=== PATIENT | male | born 1940 | race Caucasian/White ===

== ENCOUNTER 2021-08-27 18:20 | Inpatient (IN) ==
[2021-08-27] MEDS ORDERED: Naloxone 0.4 MG/ML INJ IVP PRN (23:43)
[2021-08-27] MEDS ORDERED: Ondansetron 4 MG/2 ML VIAL IVP PRN (23:43)
[2021-08-27] MEDS ORDERED: Acetaminophen 325 MG TABLET PO PRN (23:43)
[2021-08-28 00:37] LABS: Basophils % 0.1 %; Eosinophils # 0.1 K/mcL (0.0-0.6); Eosinophils % 0.5 %; Hemoglobin 9.2 g/dL (12.9-16.9); Immature Granulocytes % 0.8 % (0-4); Lymphocytes # 0.8 K/mcL (0.6-4.6); Lymphocytes % 5.6 %; Mean Corpuscular HGB Conc 32.9 g/dL (31.6-35.5); Mean Corpuscular Hemoglobin 30.4 pg (28.0-33.3); Mean Corpuscular Volume 92.4 fL (83.0-100.0); Monocytes # 0.4 K/mcL (0.0-1.3); Monocytes % 2.9 %; Neutrophils # 12.8 K/mcL (1.6-8.9); Platelet Count 142 K/mcL (140-400); Red Blood Count 3.03 M/mcL (4.19-5.50); Red Cell Distribution Width 16.4 % (11.5-14.5); Segmented Neutrophils % 90.1 %; White Blood Count 14.2 K/mcL (4.3-11.1)
[2021-08-28 00:43] LABS: INR 2.1; Prothrombin Time 23.7 Seconds (9.4-12.1)
[2021-08-28] MEDS ORDERED: Perflutren Lipid Microsphere 1.3 ML in 0.9 % Sodium Chloride 8.7 ML IVP PRN (00:43)
[2021-08-28 01:05] LABS: Albumin 2.2 g/dL (3.5-5.7); Albumin/Globulin Ratio 0.8 (1.1-2.2); Bilirubin,Direct 0.5 mg/dL (0.0-0.2); Bilirubin,Indirect 0.6 mg/dL (0.0-1.0); Bilirubin,Total 1.1 mg/dL (0.3-1.0); Calcium 8.3 mg/dL (8.6-10.3); Globulin 2.9 g/dL (2.4-3.5); Phosphorous 3.6 mg/dL (2.7-4.5); Potassium 3.1 mEq/L (3.5-5.1); Total Protein 5.1 g/dL (6.4-8.9); Troponin I 0.56 ng/mL (< 0.04)
[2021-08-28 01:55] LABS: Estimated Average Glucose 97 mg/dl
[2021-08-28] MEDS: Pantoprazole 40 MG VIAL IVP SCH ×2 (01:59→10:37)
[2021-08-28 02:28] LABS: Folate > 22.3 ng/mL (3.0-16.0); Vitamin B12 934 pg/mL (250-1100)
[2021-08-28 05:25] LABS: Bacteria,Urine Few per hpf (None-Few); Bilirubin,Urine Negative (Negative); Blood,Urine Large (Negative); Budding Yeast,Urine Many per hpf (None Seen); Clarity,Urine Turbid (Clear); Color,Urine Light-Orange (Yellow); Glucose,Urine (UA) Normal (Normal); Ketones,Urine Negative (Negative); Leukocyte Esterase,Urine Large (Negative); Mucus,Urine Few per lpf (None-Few); Nitrite,Urine Negative (Negative); PH,Urine 5.5 pH Units (5.0-8.0); Protein,Urine 30 mg/dL (Neg-Trace); RBC,Urine TNTC per hpf (0-3); Specific Gravity,Urine 1.016 (1.010-1.025); Squamous Epithelial Cell,Urine Few per hpf (None-Few); Urobilinogen,Urine Normal (Normal); WBC,Urine TNTC per hpf (0-3)
[2021-08-28 05:48] LABS: Thyroid Stimulating Hormone 1.693 mcIU/mL (0.340-5.600)
[2021-08-28] MEDS ORDERED: cefTRIAXone 1,000 MG in 0.9 % Sodium Chloride Mini Bag 100 ML IVPB SCH (05:57)
[2021-08-28] MEDS ORDERED: Ipratropium/Albuterol Neb 3 ML IH PRN (05:57)
[2021-08-28] MEDS ORDERED: 0.9 % Sodium Chloride 1,000 ML IVC SCH (06:15)
[2021-08-28] MEDS ORDERED: Azithromycin 500 MG in 0.9 % Sodium Chloride 250 ML IVPB SCH (09:00)
[2021-08-28 21:32] LABS: A.calcoaceticus-baumannii cplx Not Detected (Not Detect); Bacteroides fragilis by PCR Not Detected (Not Detect); Candida albicans by PCR Not Detected (Not Detect); Candida auris by PCR Not Detected (Not Detect); Candida glabrata by PCR Not Detected (Not Detect); Candida krusei by PCR Not Detected (Not Detect); Candida parapsilosis by PCR Not Detected (Not Detect); Candida tropicalis by PCR Not Detected (Not Detect); Crypto. neoformans/gattii PCR Not Detected (Not Detect); Enterobacter cloacae Cmplx PCR Not Detected (Not Detect); Enterobacterales by PCR Not Detected (Not Detect); Enterococcus faecalis by PCR DETECTED (Not Detect); Enterococcus faecium by PCR Not Detected (Not Detect); Escherichia coli by PCR Not Detected (Not Detect); Klebs. pneumoniae group by PCR Not Detected (Not Detect); Klebsiella aerogenes by PCR Not Detected (Not Detect); Klebsiella oxytoca by PCR Not Detected (Not Detect); Proteus by PCR Not Detected (Not Detect); Pseudomonas aeruginosa by PCR Not Detected (Not Detect); Salmonella species by PCR Not Detected (Not Detect); Serratia marcescens by PCR Not Detected (Not Detect); Staph epidermidis by PCR Not Detected (Not Detect); Staph lugdunensis by PCR Not Detected (Not Detect); Staphylococcus aureus by PCR Not Detected (Not Detect); Staphylococcus by PCR Not Detected (Not Detect); Stenotrophomonas maltophilia Not Detected (Not Detect); Streptococcus agalactiae(B)PCR Not Detected (Not Detect); Streptococcus by PCR Not Detected (Not Detect); Streptococcus pneumoniae PCR Not Detected (Not Detect); Streptococcus pyogenes (A) PCR Not Detected (Not Detect)
[2021-08-28 23:37] LABS: ABG Base Excess 2 mEq/L (-2 to 3); ABG HCO3 25 mEq/L (21-27); ABG Oxygen Saturation 98 % (95-98); ABG PCO2 34 mmHg (35-45); ABG PH 7.48 pH Units (7.32-7.45); ABG PO2 95 mmHg (85-104); ABG TCO2 26 mEq/L (20-26)
[2021-08-29 03:39] LABS: Basophils % 0.2 %; Hematocrit 31.9 % (37.5-50.1); Hemoglobin 10.5 g/dL (12.9-16.9); Immature Granulocytes % 1.1 % (0-4); Lymphocytes # 0.7 K/mcL (0.6-4.6); Lymphocytes % 4.6 %; Mean Corpuscular HGB Conc 32.9 g/dL (31.6-35.5); Mean Corpuscular Hemoglobin 30.3 pg (28.0-33.3); Mean Corpuscular Volume 91.9 fL (83.0-100.0); Mean Platelet Volume 10.9 fL (9.4-12.4); Monocytes # 0.6 K/mcL (0.0-1.3); Monocytes % 3.9 %; Neutrophils # 14.5 K/mcL (1.6-8.9); Platelet Count 149 K/mcL (140-400); Red Blood Count 3.47 M/mcL (4.19-5.50); Red Cell Distribution Width 16.9 % (11.5-14.5); Segmented Neutrophils % 90.2 %
[2021-08-29 04:01] LABS: Calcium 8.5 mg/dL (8.6-10.3); Potassium 4.4 mEq/L (3.5-5.1)
[2021-08-29] MEDS ORDERED: 0.9 % Sodium Chloride 250 ML IVC PRN (08:16)
[2021-08-29] MEDS ORDERED: *HR* Heparin 10,000 UNIT/10 ML VIAL IV PRN ×2 (08:16)
[2021-08-29] MEDS ORDERED: 0.9 % Sodium Chloride 2,000 ML PRIME SCH (08:30)
[2021-08-29] MEDS ORDERED: cefTRIAXone 2,000 MG in 0.9 % Sodium Chloride 20 ML IVP SCH (09:00)
[2021-08-29] MEDS ORDERED: Piperacillin/Tazobactam 3.375 GM in 0.9 % Sodium Chloride Mini Bag 100 ML IVPB SCH (10:00)
[2021-08-29 10:45] LABS: Hepatitis B Surface Antibody 3.47 mIU/mL
[2021-08-29 10:55] LABS: Hepatitis B Surface Antigen Nonreactive (Nonreactive)
[2021-08-29] MEDS ORDERED: Gentamicin 240 MG in 0.9 % Sodium Chloride 100 ML IVPB ONE (16:00)
[2021-08-29] MEDS ORDERED: Vancomycin 1,250 MG/262.5 ML IV.SOLN IVPB ONE (18:00)
[2021-08-29] MEDS: Ampicillin 2,000 MG in 0.9 % Sodium Chloride Mini Bag 100 ML IVPB SCH (20:55)
[2021-08-30 01:38] LABS: Immature Granulocytes % 0.7 % (0-4)
[2021-08-30 01:40] LABS: Basophils % 0.2 %; Hematocrit 30.6 % (37.5-50.1); Hemoglobin 10.4 g/dL (12.9-16.9); Immature Platelets 5.4 % (1.1-6.1); Lymphocytes # 0.7 K/mcL (0.6-4.6); Lymphocytes % 3.5 %; Mean Corpuscular Hemoglobin 30.6 pg (28.0-33.3); Mean Platelet Volume 11.6 fL (9.4-12.4); Monocytes # 0.5 K/mcL (0.0-1.3); Monocytes % 2.5 %; Neutrophils # 18.3 K/mcL (1.6-8.9); Platelet Count 112 K/mcL (140-400); Red Cell Distribution Width 17.1 % (11.5-14.5); Segmented Neutrophils % 93.1 %; White Blood Count 19.6 K/mcL (4.3-11.1)
[2021-08-30 01:51] LABS: Potassium 3.9 mEq/L (3.5-5.1)
[2021-08-30] MEDS: Ampicillin 2,000 MG in 0.9 % Sodium Chloride Mini Bag 100 ML IVPB SCH ×2 (08:36→20:44)
[2021-08-30] MEDS: Pantoprazole 40 MG VIAL IVP SCH (08:36)
[2021-08-30] MEDS ORDERED: carvediloL 6.25 MG TABLET PO SCH (12:00)
[2021-08-30] MEDS ORDERED: Dextrose Gel 15 GM/37.5 ML TUBE PO PRN ×2 (15:58)
[2021-08-30] MEDS ORDERED: D5% in Water 1,000 ML IVC PRN (15:58)
[2021-08-30] MEDS ORDERED: *HR* Dextrose 50 % in Water (Syg) 50 ML SYRINGE IVP PRN (15:58)
[2021-08-30] MEDS: carvediloL 6.25 MG TABLET PO SCH (16:34)
[2021-08-30] MEDS: Lactobacillus 1 EACH CAP.SPRINK PO SCH (20:43)
[2021-08-30] MEDS: Chlorhexidine Rinse 15 ML MOUTHWASH MM SCH (20:44)
[2021-08-30 23:40] LABS: A.calcoaceticus-baumannii cplx Not Detected (Not Detect); Bacteroides fragilis by PCR Not Detected (Not Detect); Candida albicans by PCR Not Detected (Not Detect); Candida auris by PCR Not Detected (Not Detect); Candida glabrata by PCR Not Detected (Not Detect); Candida krusei by PCR Not Detected (Not Detect); Candida parapsilosis by PCR Not Detected (Not Detect); Candida tropicalis by PCR Not Detected (Not Detect); Crypto. neoformans/gattii PCR Not Detected (Not Detect); Enterobacter cloacae Cmplx PCR Not Detected (Not Detect); Enterobacterales by PCR Not Detected (Not Detect); Enterococcus faecalis by PCR DETECTED (Not Detect); Enterococcus faecium by PCR Not Detected (Not Detect); Escherichia coli by PCR Not Detected (Not Detect); Klebs. pneumoniae group by PCR Not Detected (Not Detect); Klebsiella aerogenes by PCR Not Detected (Not Detect); Klebsiella oxytoca by PCR Not Detected (Not Detect); Proteus by PCR Not Detected (Not Detect); Pseudomonas aeruginosa by PCR Not Detected (Not Detect); Salmonella species by PCR Not Detected (Not Detect); Serratia marcescens by PCR Not Detected (Not Detect); Staph epidermidis by PCR Not Detected (Not Detect); Staph lugdunensis by PCR Not Detected (Not Detect); Staphylococcus aureus by PCR Not Detected (Not Detect); Staphylococcus by PCR Not Detected (Not Detect); Stenotrophomonas maltophilia Not Detected (Not Detect); Streptococcus agalactiae(B)PCR Not Detected (Not Detect); Streptococcus by PCR Not Detected (Not Detect); Streptococcus pneumoniae PCR Not Detected (Not Detect); Streptococcus pyogenes (A) PCR Not Detected (Not Detect); vanA/B Vancomycin-Resist Genes Not Detected (Not Detect)
[2021-08-31 06:01] LABS: Basophils % 0.1 %; Immature Granulocytes % 0.9 % (0-4); Red Blood Count 3.05 M/mcL (4.19-5.50); Segmented Neutrophils % 87.3 %
[2021-08-31 06:03] LABS: Eosinophils # 0.1 K/mcL (0.0-0.6); Eosinophils % 1.1 %; Hematocrit 27.8 % (37.5-50.1); Hemoglobin 9.2 g/dL (12.9-16.9); Immature Platelets 6.5 % (1.1-6.1); Lymphocytes # 0.7 K/mcL (0.6-4.6); Lymphocytes % 5.7 %; Mean Corpuscular HGB Conc 33.1 g/dL (31.6-35.5); Mean Corpuscular Hemoglobin 30.2 pg (28.0-33.3); Mean Corpuscular Volume 91.1 fL (83.0-100.0); Mean Platelet Volume 10.7 fL (9.4-12.4); Monocytes # 0.6 K/mcL (0.0-1.3); Monocytes % 4.9 %; Red Cell Distribution Width 17.2 % (11.5-14.5); White Blood Count 11.5 K/mcL (4.3-11.1)
[2021-08-31 06:42] LABS: Calcium 7.7 mg/dL (8.6-10.3); Potassium 3.7 mEq/L (3.5-5.1)
[2021-08-31 06:43] LABS: Chol/HDL Ratio 14.6 (0-4.9)
[2021-08-31 06:45] LABS: Magnesium 1.9 mg/dL (1.6-2.6); Phosphorous 5.2 mg/dL (2.7-4.5)
[2021-08-31 06:49] LABS: % Iron Saturation 39 % (20-55); Iron 41 mcg/dL (65-175); Platelet Count 71 K/mcL (140-400); Transferrin 75 mg/dL (203-362)
[2021-08-31 06:50] LABS: Anisocytosis 1+ (Not Present); Platelet Estimate Decreased (Normal)
[2021-08-31 06:53] LABS: Ferritin 1475 ng/mL (20-250)
[2021-08-31] MEDS: Ampicillin 2,000 MG in 0.9 % Sodium Chloride Mini Bag 100 ML IVPB SCH ×2 (09:17→21:57)
[2021-08-31] MEDS: Chlorhexidine Rinse 15 ML MOUTHWASH MM SCH ×2 (09:19→21:52)
[2021-08-31] MEDS: Pantoprazole 40 MG VIAL IVP SCH (09:19)
[2021-08-31] MEDS: Multivit/Ca/Min/Fe/FA 1 TAB TABLET PO SCH (09:20)
[2021-08-31] MEDS: Lactobacillus 1 EACH CAP.SPRINK PO SCH ×2 (09:20→21:51)
[2021-08-31] MEDS: carvediloL 6.25 MG TABLET PO SCH ×2 (09:20→16:48)
[2021-08-31] MEDS ORDERED: Saline Nasal Spray 44 ML BOTTLE NS PRN (12:19)
[2021-08-31] MEDS ORDERED: Saliva Stimulant 44.3ml BOTTLE PO PRN (12:19)
[2021-08-31] MEDS ORDERED: Thiamine (B-1) 100 MG in 0.9 % Sodium Chloride 50 ML IVPB STA (12:41)
[2021-08-31] MEDS: Artificial Tears SOLN 15 ML BOTTLE BOTH EYES SCH (22:01)
[2021-09-01 05:09] LABS: Basophils % 0.1 %
[2021-09-01 05:11] LABS: Eosinophils # 0.2 K/mcL (0.0-0.6); Eosinophils % 1.4 %; Hematocrit 32.9 % (37.5-50.1); Hemoglobin 10.7 g/dL (12.9-16.9); Immature Granulocytes % 0.8 % (0-4); Immature Platelets 6.3 % (1.1-6.1); Lymphocytes # 0.6 K/mcL (0.6-4.6); Lymphocytes % 4.3 %; Mean Corpuscular HGB Conc 32.5 g/dL (31.6-35.5); Mean Corpuscular Hemoglobin 29.6 pg (28.0-33.3); Mean Corpuscular Volume 90.9 fL (83.0-100.0); Mean Platelet Volume 12.3 fL (9.4-12.4); Monocytes # 0.6 K/mcL (0.0-1.3); Monocytes % 3.9 %; Red Blood Count 3.62 M/mcL (4.19-5.50); Red Cell Distribution Width 17.9 % (11.5-14.5); Segmented Neutrophils % 89.5 %; White Blood Count 14.8 K/mcL (4.3-11.1)
[2021-09-01 05:12] LABS: Neutrophils # 13.3 K/mcL (1.6-8.9); Platelet Count 75 K/mcL (140-400)
[2021-09-01 05:32] LABS: Magnesium 1.9 mg/dL (1.6-2.6); Phosphorous 5.2 mg/dL (2.7-4.5)
[2021-09-01 05:33] LABS: Albumin 1.9 g/dL (3.5-5.7); Albumin/Globulin Ratio 0.7 (1.1-2.2); Bilirubin,Total 0.9 mg/dL (0.3-1.0); Calcium 7.4 mg/dL (8.6-10.3); Globulin 2.7 g/dL (2.4-3.5); Potassium 3.6 mEq/L (3.5-5.1); Total Protein 4.6 g/dL (6.4-8.9)
[2021-09-01 06:42] LABS: INR 1.4; Prothrombin Time 16.1 Seconds (9.4-12.1)
[2021-09-01] MEDS: Lactobacillus 1 EACH CAP.SPRINK PO SCH ×2 (09:21→20:46)
[2021-09-01] MEDS: Chlorhexidine Rinse 15 ML MOUTHWASH MM SCH ×3 (09:21→20:54)
[2021-09-01] MEDS: Multivit/Ca/Min/Fe/FA 1 TAB TABLET PO SCH (09:21)
[2021-09-01] MEDS: Ampicillin 2,000 MG in 0.9 % Sodium Chloride Mini Bag 100 ML IVPB SCH ×2 (09:21→20:43)
[2021-09-01] MEDS: carvediloL 6.25 MG TABLET PO SCH ×2 (09:22→16:57)
[2021-09-01] MEDS: Artificial Tears SOLN 15 ML BOTTLE BOTH EYES SCH ×2 (09:22→20:47)
[2021-09-01] MEDS: Pantoprazole 40 MG VIAL IVP SCH (09:23)
[2021-09-01] MEDS: Insulin LISPRO 300 UNITS/3 ML VIAL SUBQ SCH ×2 (11:52→16:58)
[2021-09-01] MEDS ORDERED: Fluticasone Propionate Nasal 50 MCG/SPRAY BOTTLE NS PRN (14:24)
[2021-09-01] MEDS ORDERED: Gentamicin 80 MG in 0.9 % Sodium Chloride 100 ML IVPB SCH (16:00)
[2021-09-01] MEDS: Triamcinolone Acet 0.1% CRM 15 GM TUBE TP SCH (20:47)
[2021-09-02] MEDS: Insulin LISPRO 300 UNITS/3 ML VIAL SUBQ SCH ×4 (00:11→16:35)
[2021-09-02 07:31] LABS: Basophils % 0.1 %; Eosinophils # 0.2 K/mcL (0.0-0.6); Eosinophils % 1.6 %; Hematocrit 30.9 % (37.5-50.1); Hemoglobin 9.9 g/dL (12.9-16.9); Immature Granulocytes % 0.8 % (0-4); Lymphocytes # 0.7 K/mcL (0.6-4.6); Lymphocytes % 5.2 %; Mean Corpuscular Hemoglobin 29.7 pg (28.0-33.3); Mean Corpuscular Volume 92.8 fL (83.0-100.0); Mean Platelet Volume 11.8 fL (9.4-12.4); Monocytes # 0.5 K/mcL (0.0-1.3); Monocytes % 4.1 %; Red Blood Count 3.33 M/mcL (4.19-5.50); Red Cell Distribution Width 17.9 % (11.5-14.5); Segmented Neutrophils % 88.2 %; White Blood Count 12.5 K/mcL (4.3-11.1)
[2021-09-02 07:33] LABS: Platelet Count 66 K/mcL (140-400)
[2021-09-02 07:50] LABS: Albumin 1.9 g/dL (3.5-5.7); Albumin/Globulin Ratio 0.7 (1.1-2.2); Calcium 7.6 mg/dL (8.6-10.3); Globulin 2.8 g/dL (2.4-3.5); Total Protein 4.7 g/dL (6.4-8.9)
[2021-09-02 07:51] LABS: Phosphorous 5.8 mg/dL (2.7-4.5)
[2021-09-02] MEDS ORDERED: 0.9 % Sodium Chloride 250 ML IVC PRN (08:15)
[2021-09-02] MEDS ORDERED: *HR* Heparin 10,000 UNIT/10 ML VIAL IV PRN (08:20)
[2021-09-02] MEDS: Pantoprazole 40 MG VIAL IVP SCH (08:51)
[2021-09-02] MEDS: Artificial Tears SOLN 15 ML BOTTLE BOTH EYES SCH ×2 (08:52→19:36)
[2021-09-02] MEDS: Ampicillin 2,000 MG in 0.9 % Sodium Chloride Mini Bag 100 ML IVPB SCH ×2 (08:52→19:35)
[2021-09-02] MEDS: carvediloL 6.25 MG TABLET PO SCH ×2 (08:52→16:35)
[2021-09-02] MEDS: Chlorhexidine Rinse 15 ML MOUTHWASH MM SCH ×2 (08:52→19:35)
[2021-09-02] MEDS: Triamcinolone Acet 0.1% CRM 15 GM TUBE TP SCH ×2 (08:52→19:36)
[2021-09-02] MEDS: Cholecalciferol (D-3) 1,000 UNIT (25MCG) TABLET PO SCH (08:53)
[2021-09-02] MEDS: Lactobacillus 1 EACH CAP.SPRINK PO SCH ×2 (08:53→19:35)
[2021-09-02] MEDS: Folic Acid 1 MG TABLET PO SCH (08:53)
[2021-09-02] MEDS: Multivit/Ca/Min/Fe/FA 1 TAB TABLET PO SCH (08:53)
[2021-09-03] MEDS: Insulin LISPRO 300 UNITS/3 ML VIAL SUBQ SCH ×4 (00:32→17:10)
[2021-09-03] MEDS: carvediloL 6.25 MG TABLET PO SCH ×2 (07:18→17:10)
[2021-09-03 07:33] LABS: Basophils % 0.1 %; White Blood Count 14.1 K/mcL (4.3-11.1)
[2021-09-03 07:35] LABS: Eosinophils # 0.1 K/mcL (0.0-0.6); Eosinophils % 0.9 %; Hematocrit 29.6 % (37.5-50.1); Hemoglobin 9.6 g/dL (12.9-16.9); Immature Granulocytes % 0.6 % (0-4); Immature Platelets 6.3 % (1.1-6.1); Lymphocytes # 0.7 K/mcL (0.6-4.6); Lymphocytes % 4.8 %; Mean Corpuscular HGB Conc 32.4 g/dL (31.6-35.5); Mean Corpuscular Hemoglobin 29.9 pg (28.0-33.3); Mean Corpuscular Volume 92.2 fL (83.0-100.0); Mean Platelet Volume 12.4 fL (9.4-12.4); Monocytes # 0.6 K/mcL (0.0-1.3); Monocytes % 3.9 %; Neutrophils # 12.7 K/mcL (1.6-8.9); Red Blood Count 3.21 M/mcL (4.19-5.50); Red Cell Distribution Width 18.2 % (11.5-14.5); Segmented Neutrophils % 89.7 %
[2021-09-03 07:46] LABS: Albumin/Globulin Ratio 0.8 (1.1-2.2); Bilirubin,Total 0.9 mg/dL (0.3-1.0); Calcium 7.6 mg/dL (8.6-10.3); Globulin 2.6 g/dL (2.4-3.5); Potassium 3.8 mEq/L (3.5-5.1); Total Protein 4.6 g/dL (6.4-8.9)
[2021-09-03 07:52] LABS: Platelet Count 53 K/mcL (140-400)
[2021-09-03] MEDS: Pantoprazole 40 MG VIAL IVP SCH (08:59)
[2021-09-03] MEDS: Lactobacillus 1 EACH CAP.SPRINK PO SCH ×2 (08:59→22:50)
[2021-09-03] MEDS: Folic Acid 1 MG TABLET PO SCH (08:59)
[2021-09-03] MEDS: Multivit/Ca/Min/Fe/FA 1 TAB TABLET PO SCH (08:59)
[2021-09-03] MEDS: Cholecalciferol (D-3) 1,000 UNIT (25MCG) TABLET PO SCH (08:59)
[2021-09-03] MEDS: Triamcinolone Acet 0.1% CRM 15 GM TUBE TP SCH ×2 (09:00→22:51)
[2021-09-03] MEDS: Chlorhexidine Rinse 15 ML MOUTHWASH MM SCH (09:01)
[2021-09-03] MEDS: Artificial Tears SOLN 15 ML BOTTLE BOTH EYES SCH ×2 (09:02→22:50)
[2021-09-04] MEDS: Insulin LISPRO 300 UNITS/3 ML VIAL SUBQ SCH ×4 (02:30→16:39)
[2021-09-04] MEDS: Lactobacillus 1 EACH CAP.SPRINK PO SCH (08:55)
[2021-09-04] MEDS: Triamcinolone Acet 0.1% CRM 15 GM TUBE TP SCH ×2 (08:56→19:56)
[2021-09-04] MEDS: Artificial Tears SOLN 15 ML BOTTLE BOTH EYES SCH ×2 (08:56→19:56)
[2021-09-04] MEDS: Cholecalciferol (D-3) 1,000 UNIT (25MCG) TABLET PO SCH (08:56)
[2021-09-04] MEDS: Pantoprazole 40 MG VIAL IVP SCH (08:56)
[2021-09-04] MEDS: Folic Acid 1 MG TABLET PO SCH (08:56)
[2021-09-04] MEDS: Multivit/Ca/Min/Fe/FA 1 TAB TABLET PO SCH (08:56)
[2021-09-04] MEDS: carvediloL 6.25 MG TABLET PO SCH ×2 (08:56→17:04)
[2021-09-05] MEDS: Insulin LISPRO 300 UNITS/3 ML VIAL SUBQ SCH ×4 (00:18→17:55)
[2021-09-05] MEDS: carvediloL 6.25 MG TABLET PO SCH ×2 (08:05→17:54)
[2021-09-05] MEDS: Artificial Tears SOLN 15 ML BOTTLE BOTH EYES SCH ×2 (08:05→19:31)
[2021-09-05] MEDS: Triamcinolone Acet 0.1% CRM 15 GM TUBE TP SCH ×2 (08:06→19:31)
[2021-09-06] MEDS: Insulin LISPRO 300 UNITS/3 ML VIAL SUBQ SCH ×3 (00:28→12:11)
[2021-09-06] MEDS: carvediloL 6.25 MG TABLET PO SCH (08:34)
[2021-09-06] MEDS: Triamcinolone Acet 0.1% CRM 15 GM TUBE TP SCH (08:34)
[2021-09-06] MEDS: Artificial Tears SOLN 15 ML BOTTLE BOTH EYES SCH (08:35)
[2021-09-06 12:12] VITALS: BP 106/64; PULSE 73; TEMP 97.3; O2SAT 97
== END 2021-09-06 14:28 | disposition hospice, home (50) | DRG 280 ==
LOC: 2ANU → SUATTDRO 23:43
PROVIDERS: ADMIT Internal Medicine; ATTEND Internal Medicine